=== PATIENT | female | born 1965 | race Two or more races ===

== ENCOUNTER 2020-05-28 13:59 | Emergency (ER) | payer BC, MEDICAID ==
[~2020-05-28] VITALS: Ht 152.4 cm; Wt 79.4 kg
[~2020-05-28 13:59] MED LIST: METF-372 PO
[2020-05-28 14:20] VITALS: BP 141/93
== END 2020-05-28 15:46 | disposition home or self-care (01) ==
LOC: ER 13:59
DX: U07.1 COVID-19 (principal); J18.9 Pneumonia, unspecified organism; E11.9 Type 2 diabetes mellitus without complications; Z90.710 Acquired absence of both cervix and uterus
CPT/HCPCS: 71045

== ENCOUNTER 2020-06-07 11:20 | Emergency (ER) | payer MEDICAID ==
[~2020-06-07] VITALS: Ht 160 cm; Wt 74.8 kg
[2020-06-07 11:29] VITALS: BP 136/93
[2020-06-07] MEDS ORDERED: ACETAMINOPHEN 500 MG TAB PO ONE (12:45)
== END 2020-06-07 13:48 | disposition home or self-care (01) ==
LOC: ER 11:20
DX: S29.012A Strain of muscle and tendon of back wall of thorax, initial encounter (principal); E11.9 Type 2 diabetes mellitus without complications; Z90.710 Acquired absence of both cervix and uterus; X58.XXXA Exposure to other specified factors, initial encounter; Y93.89 Activity, other specified; Y92.89 Other specified places as the place of occurrence of the external cause; Y99.8 Other external cause status
CPT/HCPCS: 71046